=== PATIENT | female | born 1985 | race Caucasian/White ===

== ENCOUNTER → 2019-08-10 13:05 | Outpatient (BNVA) | payer OTHER, SELFPAY | PROVIDERS: Family Provider Family Medicine; PCP Family Medicine; Visit Provider Obstetrics & Gynecology | DX: N91.2 Amenorrhea, unspecified (principal) | CPT/HCPCS: 84702 ==

== ENCOUNTER → 2020-08-21 08:25 | Outpatient (BNVA) | payer OTHER, SELFPAY | PROVIDERS: Family Provider Family Medicine; PCP Family Medicine; Visit Provider Obstetrics & Gynecology | DX: Z12.4 Encounter for screening for malignant neoplasm of cervix (principal); N93.9 Abnormal uterine and vaginal bleeding, unspecified; Q51.3 Bicornate uterus | CPT/HCPCS: 88175 ==

== ENCOUNTER → 2021-03-02 08:53 | Outpatient (BNVA) | payer BC, SELFPAY | PROVIDERS: Family Provider Family Medicine; PCP Family Medicine; Visit Provider Obstetrics & Gynecology | DX: N93.9 Abnormal uterine and vaginal bleeding, unspecified (principal); Z20.822 Contact with and (suspected) exposure to COVID-19 | CPT/HCPCS: 87635 ==

== ENCOUNTER 2021-03-08 10:39 | Inpatient (IN) | payer BC, SELFPAY ==
[2021-03-06 10:26] VITALS: BMI 31.5
[2021-03-06 10:47] LABS: Basophils # 0.1 10^3/uL (0.0-0.1); Basophils % 0.7 %; Eosinophils # 0.3 10^3/uL (0.0-0.8); Eosinophils % 3.2 %; Hematocrit 43.5 % (37.0-47.0); Hemoglobin 14.2 g/dL (11.5-15.3); Lymphocytes # 3.7 10^3/uL (0.8-4.8); Lymphocytes % 42.2 %; Mean Corpuscular HGB Conc 32.6 g/dL (30.0-36.0); Mean Corpuscular Hemoglobin 28.7 pg (28.0-34.0); Mean Corpuscular Volume 88.1 fl (81-99); Mean Platelet Volume 11.6 fL (7.4-10.4); Monocytes # 0.6 10^3/uL (0.2-0.9); Monocytes % 6.4 %; Neutrophils # 4.11 10^3/uL (1.8-7.7); Neutrophils % 47.4 %; Nucleated Red Blood Cells % 0 %; Platelet Count 284 10^3/cmm (130-400); Red Blood Count 4.94 10^6/uL (4.1-5.3); Red Cell Distribution Width 12.6 % (12.1-15.1); White Blood Count 8.7 10^3/uL (4.0-10.0)
--- NOTE | 2021-03-06 11:00 | ANES.PREANE2 ---
Pre-Anesthetic Assessment Pre-Anesthetic Assessment: Height/Weight: Height 1.78 m Weight 99.79 kg Proposed Procedure: Operation Date: 03/08/21 07:00 Proposed Procedures p Total Abdominal Hysterectomy 46641 [id number] N94.1 N93.9(Not Applicable) - Lucio Souza MD s Salpingo Oophorectomy (Open)(Not Applicable) - Lucio Souza MD Was Beta Margy taken within 24 hours: N/A Was Clonidine taken within 24 hours: N/A Social: Social History: No alcohol and No tobacco Exam: Pre-Anes Outpt Exam: alert, oriented x 3 and clear to auscultation bilaterally Airway: Submandibular: WNL Cervical ROM: WNL MP: 1 Dentition: Full History/ROS: No significant complaints Pulmonary: Pulmonary: None reported CV/HEM: CV/HEM: None reported : : None reported Hepatic: Hepatic: None reported GI: GI: None reported Metabolic: Metabolic: None reported Musc/skel: Musc/skel: None reported Neuropsych: Neuropsych: None reported Anesthetic Plan: ASA status: 1 Anesthesia: General (spirinolactone taken for dermatologic reasons) Risk of > 500 ml blood loss (7ml/kg in children): Yes, adequate IV access and fluids planned PFSH Anesthesia PFSH: Medical History Acne Follows up with [facility] in [place] and is currently on spironolactone since July 2017 for this. She has noticed an improvement in her symptoms. Bicornate uterus States that she had a laparoscopy for dyspareunia and was diagnosed with a bicornuate uterus in 2008. -Operative report shows no endometriosis was seen ovaries and tubes were entirely normal the uterus had a widened fundus however no other abnormalities were seen. Postoperative diagnosis was a probable uterine malformation. No pertinent past medical history Denies diabetes, asthma, hypertension, seizures, DVT/PE. PCP Dr. Rashid Surgical History History of section x 2-----> 2010 and 2013 History of laparoscopy (~04/10/09) diagnostic laparoscopy done for dyspareunia bicornuate uterus and right ovarian cyst. Performed by Dr. Castro. These records have been requested and received. -Operative report shows no endometriosis was seen ovaries and tubes were entirely normal the uterus had a widened fundus however no other abnormalities were seen. Postoperative diagnosis was a probable uterine malformation. Family History Father Hypertension Grandmother Heart disease maternal Denies family history of Colon cancer Ovarian cancer Diabetes Hyperlipidemia Breast cancer Uterine cancer Thyroid condition Stroke Social History (Updated 02/21/21 @ 07:29 by Lucio Souza MD) Smoking and tobacco status: never smoked Alcohol intake: current Female Reproductive History: Date of last menstrual period: 02/23/21 Data Anesthesia CBC & Chem 7: 03/06/21 10:10 Other Labs: Laboratory Results - last 48 hr 03/06/21 10:10 WBC 8.7 RBC 4.94 Hgb 14.2 Hct 43.5 MCV 88.1 MCH 28.7 MCHC 32.6 RDW 12.6 Plt Count 284 MPV 11.6 H Neut % (Auto) 47.4 Lymph % (Auto) 42.2 [place] % (Auto) 6.4 Eos % (Auto) 3.2 Baso % (Auto) 0.7 Neut # (Auto) 4.11 Lymph # (Auto) 3.7 [place] # (Auto) 0.6 Eos # (Auto) 0.3 Baso # (Auto) 0.1 Nucleated RBC % (auto) 0 Nucleated RBCs # 0.0 Cardiac Studies: No Data to Display
[2021-03-08] VITALS (20 sets, daily range): BP systolic 87–155; BP diastolic 54–108; PULSE 71–98; RESP 14–22; TEMP 36.4–36.9; O2SAT 96–100
[2021-03-08 06:37] LABS: OR HCG Qualitative Urine Negative (Negative)
[2021-03-08] MEDS: sodium chloride 0.9% 1,000 ML 30 ML IV (06:44)
--- NOTE | 2021-03-08 06:58 | W.PM.OPSUD ---
Surgery/Procedure H&P Update DATE OF PROCEDURE: March 08, 2021 DATE H&P PERFORMED: 02/20/21 H&P UPDATE INFORMATION: I have reviewed H&P completed within last 30 days, I have examined patient prior to procedure, No changes to prior documentation and H&P is in [facility] EMR on date indicated PREOP DIAGNOSIS: Abnormal uterine bleeding, uterine anomaly PLANNED PROCEDURE: Operation Date: 03/08/21 07:00 Proposed Procedures p Total Abdominal Hysterectomy 72306 15199 N94.1 N93.9(Not Applicable) - Lucio Souza MD s Salpingectomy(Bilateral) - Lucio Souza MD
--- NOTE | 2021-03-08 07:49 | P.ANESUD_ITS ---
Pre-Anesthetic Update Pre-Anesthetic Assessment: Date of Surgery/Procedure: 03/08/21 Preop Evelyne gnosis: Abnormal uterine bleeding, uterine anomaly Proposed Procedure: Operation Date: 03/08/21 07:00 Proposed Procedures p Total Abdominal Hysterectomy 80508 87148 N94.1 N93.9(Not Applicable) - Lucio Souza MD s Salpingectomy(Bilateral) - Lucio Souza MD Any changes to Pre-Anesthetic Assessment?: No Last Intake: Intake Last Liquid Date 03/07/21 Last Liquid Time 22:00 Last Solid Date 03/07/21 Last Solid Time 19:00 Labs Last 48hrs: Laboratory Results - last 48 hr 03/06/21 03/06/21 03/08/21 10:10 10:10 06:03 WBC 8.7 RBC 4.94 Hgb 14.2 Hct 43.5 MCV 88.1 MCH 28.7 MCHC 32.6 RDW 12.6 Plt Count 284 MPV 11.6 H Neut % (Auto) 47.4 Lymph % (Auto) 42.2 [place] % (Auto) 6.4 Eos % (Auto) 3.2 Baso % (Auto) 0.7 Neut # (Auto) 4.11 Lymph # (Auto) 3.7 [place] # (Auto) 0.6 Eos # (Auto) 0.3 Baso # (Auto) 0.1 Nucleated RBC % (a uto) 0 Nucleated RBCs # 0.0 Urine HCG, Qual Negative Blood Type O Positive Rho(D) Type Positive Antibody Screen Negative Vitals: Temperature 97.8 F 03/08/21 06:32 Pulse Rate 74 03/08/21 06:32 Respiratory Rate 16 03/08/21 06:32 Blood Pressure 155/108 03/08/21 06:32 Blood Pressure Gwendolyn n 123 03/08/21 06:32 Pulse Oximetry 98 03/08/21 06:32 Exam: Pre-Anes Outpt Exam: alert, oriented x 3, clear to auscultation bilaterally and regular rate & rhythm Cardiac Studies: No Data to Display
--- NOTE | 2021-03-08 11:13 | PM.OP ---
Operative Report Date of procedure: March 08, 2021 OPERATIVE REPORT Date of surgery: 03/08/2021 Date of dictation: 03/08/2021 Preoperative diagnosis: Bicornuate uterus, dyspareunia, abnormal uterine bleeding, previous delivery x2 Postoperative diagnosis/findings: Same, 10-week size bulky anteverted uterus, density lesions of the uterus to the anterior abdominal wall and dense bladder adhesions onto the uterus. On cystoscopy bilateral ureteral jets x2 and no defect lesion or suture noted in the bladder. Procedure done: Total abdominal hysterectomy, bilateral salpingectomy, cystoscopy Specimens removed/disposition of specimens: Uterus, bilateral tubes and cervix Surgeon: Dr. Lucio Jacobo Educator Senior Clinical: Taylor Tipton Anesthesia: General endotracheal tube anesthesia Estimated blood loss: 250 ml Intravenous fluids: 1700 mL of LR Urine output: 200 mL of clear urine at the end of procedure Medications: As per anesthesia records Complications: None, patient was extubated and taken to the recovery room in a stable condition. PROCEDURE: After consent was obtained patient was taken to the operating room where she was placed under general anesthesia. Sequential compression boots and Sheridan catheter were placed. She was prepped and draped in the usual sterile fashion in a dorsal supine position. A horizontal suprapubic incision was made using a scalpel at the level of her previous scar and this was extended down to the Fascia using a combination of scalpel and Bovie. Good hemostasis was achieved in the subcutaneous field.. This was carried down to the fascia with electrocautery and a scalpel. Fascia was incised in the midline and extended laterally sharply. Rectus muscles were in the midline sharply and Peritoneum was identified and was sharply entered. Dense adhesions of the uterus were noted onto the peritoneum and this was taken down sharply. There were some filmy omental adhesions as well which was taken down with cautery and good hemostasis was noted once this was done the uterus was exteriorized. With this the bowel was packed away and pelvis was visualized. Dense adhesions were noted from the bladder onto the uterus. The uterus did appear widened at the fundus however unsure if it was bicornuate or a fundal anterior fibroid. Tubes appeared normal as did ovaries bilaterally. No other lesions were noted posteriorly. The bowel was carefully packed away and an Riccardo'Zackary-O'Sweeney retractor was placed to help with visualization. Care was taken to avoid any undue pressure. The right round ligament was clamped cut and suture ligated with 0 Vicryl suture. The broad ligament was opened and the fallopian tube and ovarian ligament was clamped, cut and suture ligated with 0 Vicryl suture in a near and far fashion. It was tied with a free tie of 0 Vicryl suture. The broad ligament incision was extended inferiorly and carried over the lower uterine segment. There were dense additions and these additions were taken down sharply as carefully as possible. The bladder was noted to be intact without any tears. The uterine vessels were skeletonized as well. In a similar fashion the the left round ligament was clamped, cut and suture ligated with 0 Vicryl suture. The broad ligament was opened and the incision carried superiorly parallel to the left ovarian vessels. The ovarian ligament, fallopian tube was doubly clamped, cut and suture ligated with 0 Vicryl suture. The pedicle was tied with a free tie of 0 Vicryl suture. The broad ligament incision was extended inferiorly and carried over the lower uterine segment to meet with the dissection the contralateral side and a bladder flap was created. The bladder was then off from the cervix without any difficulty. The left uterine vessels were skeletonized clamped. Using the abdominal Voyant the parametria on the right and then the left side were clamped cauterized and then cut up until the level of the lower uterine segment. Curved clamps were placed at the level of the internal os. These were cut, and then tied with 0 Vicryl suture bilaterally. The bladder was then sharply dissected away from the cervix until it was carried below the level of the cervix. The remaining portion of the parametria was then serially clamped, cut, and suture ligated with 0 Vicryl suture bilaterally until the bottom of the cervix was reached. At this point, sharply curved clamps were placed across the top of the vagina and the remaining portion of the cervix excised. With this the uterus and cervix were removed. The cervix was inspected and noted to be complete. The corners of the cuff were secured with 0 Vicryl suture in a Shaji fashion bilaterally. The remaining portion of the vaginal cuff was closed with 0 Vicryl suture in an interrupted [id number] fashion. The area was thoroughly inspected and noted to be hemostatic. It was irrigated and noted to be hemostatic. Attention was then turned towards the fallopian tubes bilaterally. The fallopian tubes were grasped with Mineral and using the abdominal Voyant the mesosalpinx was clamped cauterized and cut serially so that the fallopian tubes were and sent to pathology along with the uterus with the right fallopian tube tagged The pelvis was irrigated once again and small area of oozing near the left of was made hemostatic with a [id number] suture. With this good hemostasis was achieved. Surgicel was placed over the vaginal cuff. The packing and retractor was removed. The rectus muscle was reapproximated using mattress sutures and good reapproximation was noted. Hemostasis was achieved in the muscle layer. The fascia was closed with oh loop PDS in a continuous fashion and good reapproximation was obtained. The subcutaneous plane was irrigated well and hemostasis was achieved with the Bovie. It was reapproximated using 2-0 plain sutures in a continuous fashion. At this time abdomen was covered and attention was turned towards the pelvis and cystoscopy was performed. Mucosa was noted to be normal without any defect lesions or suture. Bilateral ureteral jets x2 was noted. Attention was turned back to the abdomen ensuring that sterile process was maintained and the skin was then closed with 4-0 Monocryl in a subcuticular fashion after excising the old scar. Pressure dressing was applied onto the abdomen. Lap instrument and needle counts were correct x2. Sheridan catheter was replaced. Patient was extubated without difficulty and taken to the recovery room in a stable condition. This documentation was created by [employer] director regulatory compliance software (known for inherent director regulatory compliance error). Every effort was made to assure accuracy of director regulatory compliance. Any obvious errors or omissions should be clarified with the author of the document. Pre-op Diagnosis: Abnormal uterine bleeding, uterine anomaly
[2021-03-08] MEDS: fentaNYL 50 mcg/mL INJ 2mL IVP ×2 (11:19→11:24)
[2021-03-08] MEDS: ondansetron 2 mg/ML SDV 2 mL 4 MG IVP (11:33)
[2021-03-08] MEDS: dextrose 5%-lactated ringers 1,000 ML 125 ML IV ×2 (12:45→21:18)
[2021-03-08] MEDS: HYDROcodone-acetaminophen 5-325 mg Tablet PO ×2 (12:45→19:36)
--- NOTE | 2021-03-08 13:19 | ANE.PACU2 ---
Inpatient post-anesthesia follow up: Airway intact: Yes Vital signs: Temperature 97.8 F Pulse Rate 83 Respiratory Rate 16 Blood Pressure 117/83 Pulse Oximetry 98 Oxygen Delivery Me thod Room Air Oxygen Flow Rate 8 Fraction of Inspir ed Oxygen Hydration adequate: Yes Nausea and vomiting: No Pain level: 3 Mental status: Baseline
[2021-03-08] MEDS: ibuprofen 800 mg tablet PO (17:27)
[2021-03-08] MEDS: docusate sodium 100 mg Capsule PO (17:27)
[2021-03-08] MEDS: morphine 4 mg/mL SDV 1 mL 2 MG IVP (17:27)
[2021-03-09] MEDS: HYDROcodone-acetaminophen 5-325 mg Tablet PO ×4 (01:01→19:25)
[2021-03-09] MEDS: ibuprofen 800 mg tablet PO ×3 (01:01→17:29)
[2021-03-09 05:00] VITALS: BP 92/59; PULSE 57; TEMP 36.7; O2SAT 97
[2021-03-09] MEDS: dextrose 5%-lactated ringers 1,000 ML 125 ML IV (05:28)
[2021-03-09 05:43] LABS: Hemoglobin 11.3 g/dL (11.5-15.3); Mean Corpuscular HGB Conc 31.4 g/dL (30.0-36.0); Mean Corpuscular Hemoglobin 28.5 pg (28.0-34.0); Mean Corpuscular Volume 90.7 fl (81-99); Mean Platelet Volume 11.4 fL (7.4-10.4); Platelet Count 235 10^3/cmm (130-400); Red Blood Count 3.97 10^6/uL (4.1-5.3); Red Cell Distribution Width 12.9 % (12.1-15.1); White Blood Count 16.1 10^3/uL (4.0-10.0)
[2021-03-09] MEDS: docusate sodium 100 mg Capsule PO ×2 (09:47→17:29)
[2021-03-09 10:00] VITALS: BP 84/44; PULSE 65; RESP 16; TEMP 37; O2SAT 96
--- NOTE | 2021-03-09 11:31 | PM.PN ---
Subjective Subjective: Interval history: SUBJECTIVE: Marcia is doing well today. She states that she has been consistently passing gas more frequently this morning and has tolerated a full liquid diet without any difficulty. She denies nausea, vomiting, fever, chills, shortness of breath and chest pain. She is answering emails. She denies any problems and is pretty hungry. She states her pain is well controlled with pills and she has voided since removal of the catheter. She has no other concerns today OBJECTIVE/PHYSICAL EXAM: Gen.: No acute distress Heart: S1-S2 heard, regular rate and rhythm Lungs: Clear to auscultation bilaterally Abdomen: Soft, nondistended, nontender, normoactive bowel sounds Incision: Dressing removed, clean dry and intact with Steri-Strips. Legs: No calf tenderness, no pedal edema. SCDs in place ASSESSMENT AND PLAN: 36-year-old status post total abdominal hysterectomy and bilateral salpingectomy, postoperative day #1 -Doing well-we will advance to regular diet -Encourage ambulation and incentive spirometer use -SCDs while in bed -P.o. pain medication -Anticipate discharge home in the next 1 to 2 days as long as she is doing well -Vital signs stable, hemoglobin stable Vitals/I&O/Wt Last Vital Signs Temp 98.6 F 03/09/21 10:00 Pulse 65 03/09/21 10:00 Resp 16 03/09/21 10:00 BP 84/44 03/09/21 10:00 Pulse Ox 96 03/09/21 10:00 03/08/21 03/09/21 03/09/21 22:59 06:59 14:59 Intake Total 1000 / 1860 1150 / 3010 Output Total 2100 / 3150 1000 / 4150 250 / 250 Balance -1100 / -1290 150 / -1140 -250 / -250 Physical Exam Urinary Catheter Management^: Sheridan: Cath Placed During This Visit: yes, but has since been removed by the nurse Reason for Continuing Indwelling Catheter: Decision to DC Catheter Urinary Catheter Date of Insertion: 03/08/21 Urinary Catheter Time of Insertion: 07:15 Date Urinary Catheter Removed: 03/09/21 Time Urinary Catheter Discontinued: 06:40 Data : 03/09/21 05:07 Attestations Medical Necessity Statement*: Anticipate patient needing to stay 1-2 more midnights to recover from surgery Coding Level of Care Code Acute Shipping And Receiving for Valentina Perez
[2021-03-09] MEDS: dextrose 5%-lactated ringers 1,000 ML 100 ML IV (15:30)
[2021-03-09 15:34] VITALS: BP 110/70; PULSE 54; RESP 18
[2021-03-09 22:00] VITALS: BP 90/52; PULSE 74; RESP 18; TEMP 36.9
[2021-03-10] MEDS: ibuprofen 800 mg tablet PO ×2 (01:35→09:26)
[2021-03-10 03:30] VITALS: BP 107/69; PULSE 70; RESP 18; TEMP 37
[2021-03-10] MEDS: HYDROcodone-acetaminophen 5-325 mg Tablet PO (07:08)
[2021-03-10] MEDS: docusate sodium 100 mg Capsule PO (08:26)
--- NOTE | 2021-03-10 09:17 | PM.DCS ---
Discharge Providers Date of Admission: 03/08/21 10:39 Date of Discharge: March 10, 2021 Attending Provider at Admission: Lucio Souza MD Attending Provider at Discharge: Lucio Souza MD Primary Care Provider: Steve Rashid MD Diagnoses at Discharge Discharge Diagnosis (1) Dyspareunia: Status: Acute (2) Bicornate uterus: Status: Acute Permanent problem details: States that she had a laparoscopy for dyspareunia and was diagnosed with a bicornuate uterus in 2008. -Operative report shows no endometriosis was seen ovaries and tubes were entirely normal the uterus had a widened fundus however no other abnormalities were seen. Postoperative diagnosis was a probable uterine malformation. (3) Abnormal uterine bleeding: Status: Acute Reason for Visit Reason for Visit: total abdominal hysterectomy Hospital Course Hospital Course The patient was admitted for surgery. She did well postoperatively and was ready for discharge on day #2 Physical Exam Narrative: EXAM NARRATIVE: The patient is doing well this morning. no concerns Const: COMMON NORMALS: no acute distress, average body habitus, patient oriented x3, no limitations, healthy appearing, alert and well nourished GENERAL APPEARANCE: cooperative, comfortable, well kempt and well developed ORIENTATION/CONSCIOUSNESS: Yes awake, Yes oriented to person, Yes oriented to place and Yes oriented to time Resp: COMMON NORMALS: normal respiratory effort EFFORT & INSPECTION: Yes able to speak in complete sentences GI: COMMON NORMALS: Soft to palpation and non-tender PALPATION: Yes Soft to palpation Extremity: COMMON NORMALS: no clubbing, cyanosis or edema and no calf tenderness Neuro: COMMON NORMALS: patient oriented x3 SENSORIUM/ORIENTATION: Yes alert, Yes oriented to person, Yes oriented to place and Yes oriented to time Psych: APPEARANCE: Yes well kempt Skin: WOUNDS: Yes surgical site (clean/dry/intact) Urinary Catheter Management^: Sheridan: Cath Placed During This Visit: yes, but has since been removed by the nurse Reason for Continuing Indwelling Catheter: Decision to DC Catheter Urinary Catheter Date of Insertion: 03/08/21 Urinary Catheter Time of Insertion: 07:15 Date Urinary Catheter Removed: 03/09/21 Time Urinary Catheter Discontinued: 06:40 Discharge Data Data Completed and Pending: Pending at discharge Category Date Time Status ES surgery / GI i mages Routine Exams 03/08/21 09:27 Taken Pathology: Surgic al [PTH] Routine Pth 03/08/21 10:35 Received Vitals: Last Vital Signs Temp 98.6 F 03/10/21 03:30 Pulse 70 03/10/21 03:30 Resp 18 03/10/21 03:30 BP 107/69 03/10/21 03:30 Pulse Ox 96 03/09/21 10:00 Discharge Plan Discharge Patient Disposition: Home Condition: Stable Prescriptions: New ibuprofen 800 mg Tablet 800 mg PO Q8H Qty: 30 RF: 0 hydrocodone-acetaminophen 5-325 mg Tablet 1 - 2 tab PO Q6H PRN (Reason: Moderate To Severe Pain) Qty: 30 RF: 0 docusate sodium 100 mg Capsule 100 mg PO BID Qty: 60 RF: 0 Continued spironolactone 50 mg tablet 50 mg PO DAILY RF: 0 Discharge Orders: Discharge Order (Routine); Ordered 03/10/21 Ordered By: Fiona Penn Referrals: Lucio Souza MD [Physician] - 03/27/21 9:15 am (Your 3 week post-op appointment is scheduled for 03/27/21 @9:15. Your 5 week post-op appointment is scheduled for 04/10/21 @9:15. ) Patient Instructions: Hydrocodone/Acetaminophen (By mouth) (Vicodin, [place], Lortab), Ibuprofen (By mouth), Laxative, Stool Softeners (By mouth) (Doculax, Colace, Colace Clear, DSS), Hysterectomy (DC), OB Abdominal Surgery - [facility], OB Discharge Report, OB Food/Drug Interaction Guide, Opioid Safety Discharge Attestations Time Spent in Discharge Care*: less than 30 min Quality Metrics Clinical Quality Measures During this hospital stay, did patient experience: None Coding Level of Care Code Acute Chg FW DC note Diagnoses Dyspareunia Bicornate uterus Q51.3 Abnormal uterine bleeding N93.9
[2021-03-10 09:29] VITALS: BP 114/76; PULSE 62; RESP 16; TEMP 36.7; O2SAT 98
== END 2021-03-10 09:55 | disposition home or self-care (01) | DRG 743 ==
LOC: OBGYN 16:42
PROVIDERS: Admitting Provider Obstetrics & Gynecology; PCP Family Medicine; Visit Provider Obstetrics & Gynecology
PROC: 0UT90ZZ Resection of Uterus, Open Approach (ICD-10-PCS; CPT 58150; principal; 2021-03-08 07:00)
PROC: 0UT90ZZ Resection of Uterus, Open Approach (ICD-10-PCS; CPT 58700; 2021-03-08 07:00)
PROC: 0TJB8ZZ Inspection of Bladder, Via Natural or Artificial Opening Endoscopic (ICD-10-PCS; CPT 52000; 2021-03-08 07:00)
DX: Q51.3 Bicornate uterus (principal); N94.10 Unspecified dyspareunia; N93.9 Abnormal uterine and vaginal bleeding, unspecified; N73.6 Female pelvic peritoneal adhesions (postinfective)
CPT/HCPCS: 36415; 81025; 84703; 85025; 85027; 86850; 86900; 88307; J0690; J1100; J1170; J1200; J2250; J2270; J2405; J3010; J7030

== ENCOUNTER → 2021-03-27 00:01 | Outpatient (BNVA) | payer BC, SELFPAY | PROVIDERS: PCP Family Medicine; Visit Provider Obstetrics & Gynecology | DX: R30.0 Dysuria (principal) | CPT/HCPCS: 87086 ==